=== PATIENT | male | born 1975 | race Caucasian/White ===

== ENCOUNTER 2017-07-01 10:14 | Emergency (ER) | payer MEDICARE, OTHER ==
[~2017-07-01] VITALS: Ht 172.7 cm; Wt 65.0 kg
[~2017-07-01 10:14] MED LIST: LEVO.025 PO
[2017-07-01 10:27] VITALS: BP 130/71; PULSE 80; RESP 18; TEMP 98.2; O2SAT 99
--- NOTE | 2017-07-01 10:43 | PD ---
HPI Chief Complaint: Psychiatric Symptoms Time Seen by Provider: 10:37 Travel History International Travel<30 days: No Contact w/Intl Traveler<30days: No Traveled to known affect area: No History of Present Illness HPI 42-year-old male with history of cerebral palsy and mental retardation presents to the emergency room under L[place] act initiated by [employer]. 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 When ambulance arrived, patient was calm, cooperative. He is nonverbal and does not walk. Patient can answer yes or no questions and denies suicidal ideation. He did not present with a medication list. [facility] Past Medical History Medical History: Unable to Obtain Developmental Delay: Yes (MR AND CP ACCORDING TO [facility]MA) Past Surgical History Surgical History: Unable to Obtain Social History Tobacco Use: No Allergies-Medications (Allergen,Severity, Reaction): Coded Allergies: No Known Allergies (Unverified , 08/19/15) Per [facility] [phone]. Reported Meds & Prescriptions Reported Meds & Active Scripts Active Reported Levothyroxine 25 mcg (Levothyroxine Sodium) 25 Mcg Tab 25 Mcg PO DAILY Review of Systems Except as stated in HPI: all other systems reviewed are Neg Physical Exam Narrative GENERAL: Well-nourished, frail male in no acute distress. Afebrile. SKIN: Focused skin assessment warm/dry. HEAD: Normocephalic. EYES: No scleral icterus. No injection or drainage. NECK: Supple, trachea midline. No JVD or lymphadenopathy. CARDIOVASCULAR: Regular rate and rhythm without murmurs, gallops, or rubs. RESPIRATORY: Breath sounds equal bilaterally. No accessory muscle use. PSYCHIATRIC: No delusional thought processes. No hallucinations. Normal mood. Data Data Last Documented VS Vital Signs Date Time Temp Pulse Resp B/P (MAP) Pulse Ox O2 Delivery O2 Flow Rate FiO2 07/01/17 10:27 98.2 80 18 130/71 (90) 99 Orders Orders Restraints Non-Violent ONEL.Q3H (07/01/17 10:53) Ed Discharge Order (07/01/17 11:09) [facility] Medical Decision Making Medical Screen Exam Complete: Yes Emergency Medical Condition: Yes Medical Record Reviewed: Yes Differential Diagnosis Suicidal ideation, inappropriate Lutz act, adjustment disorder, mood disorder, mental retardation Narrative Course 42-year-old male with history of mental retardation and cerebral palsy presents to the emergency room under [place] act initiated by the police department. According to Lutz act, patient became aggressive with staff. He is nonverbal but can answer yes or no questions. Patient denies suicidal homicidal lesion at this time. He has calm and cooperative. Patient is pulling at our staff but in a nonaggressive manner. Soft restraints were ordered to keep patient from getting out and falling out of the bed. He denies any medical complaints at this time. Vital signs stable. This is an inappropriate Lutz act. Patient is not a threat to himself or others at this time. Lutz act was lifted by Dr. Rivas. I spoke to case management about placement for this patient who states if the facility from which he came cannot handle him, they will need to find placement for him. He will be discharged back to their facility. Diagnosis Primary Impression: Cerebral palsy Qualified Codes: G80.9 - Cerebral palsy, unspecified Referrals: Primary Care Physician Additional Instructions: Follow-up with a primary care physician. Return to the emergency room for worsening symptoms. Disposition: 01 DISCHARGE HOME Condition: Stable Paige Olson Jul 01, 2017 10:43
--- NOTE | 2017-07-01 11:14 | PD ---
Physical Exam Date Seen by Provider: Jul 01, 2017 Narrative Patient presented to us as a Lutz Act. He lives in a facility because of cerebral palsy and mental retardation. They reported that he was acting aggressively towards the staff this morning. This patient is very slightly built. He does not appear to be capable of harming himself or anyone else. He is reaching out to us but is not really aggressive. His Lutz Act is being lifted. His condition does not meet Lutz Act criteria. Data Data Last Documented VS Vital Signs Date Time Temp Pulse Resp B/P (MAP) Pulse Ox O2 Delivery O2 Flow Rate FiO2 07/01/17 10:27 98.2 80 18 130/71 (90) 99 Orders Orders Restraints Non-Violent ONEL.Q3H (07/01/17 10:53) Ed Discharge Order (07/01/17 11:09) MDM Supervised Visit with ANA: Yes Narrative Course I, Dr. puentes, have reviewed the advance practice practitioner's documentation and am in agreement, met with the patient face to face, made the diagnosis, and the medical decision making was done by me. *My assessment and Findings: I have independently evaluated this patient. He is being restrained with soft restraints because he is trying to get out of the bed. He is not verbal. He suffers from cerebral palsy and mental retardation. As such, Lutz Act for him is inappropriate. Please see Paige Olson PA-C's note for results of laboratory and radiographic evaluation, ED course, final diagnosis and disposition Diagnosis Primary Impression: Cerebral palsy Qualified Codes: G80.9 - Cerebral palsy, unspecified Referrals: Primary Care Physician Additional Instruction: Follow-up with a primary care physician. Return to the emergency room for worsening symptoms. Disposition: 01 DISCHARGE HOME Condition: Stable Alycia Rivas MD Jul 01, 2017 11:14
== END 2017-07-01 16:51 | disposition home or self-care (01) ==
LOC: NEPD 10:14
DX: G80.9 Cerebral palsy, unspecified (principal); F79 Unspecified intellectual disabilities; Z78.1 Physical restraint status; Z79.899 Other long term (current) drug therapy
CPT/HCPCS: 99285